=== PATIENT | male | born 2000 | race Caucasian/White ===

== ENCOUNTER 2022-12-18 09:36 | Emergency (ER) | payer OTHER ==
[2022-12-18] MEDS ORDERED: Bacitracin 1 PK ONE (11:10)
[2022-12-18] MEDS ORDERED: Iopamidol-370 76% 500 ML 1 ML ONE (15:38)
== END 2022-12-18 12:01 | disposition home or self-care (01) ==
LOC: ERS 09:36
DX: S81.811A Laceration without foreign body, right lower leg, initial encounter (principal); F17.210 Nicotine dependence, cigarettes, uncomplicated; W26.0XXA Contact with knife, initial encounter
CPT/HCPCS: 75635; 99283